=== PATIENT | female | born 1975 | race Two or more races ===

== ENCOUNTER 2019-10-24 18:15 | Emergency (ER) | payer BC ==
[~2019-10-24] VITALS: Ht 154.9 cm; Wt 74.5 kg
[2019-10-24] MEDS ORDERED: SODIUM CHLORIDE FLUSH 10ML SYR IVF ONE (19:00)
[2019-10-24] MEDS ORDERED: ONDANSETRON 2MG/ML, 2ML IVPush ONE (19:00)
[2019-10-24] MEDS ORDERED: MORPHINE SULFATE 4 MG/ML, 1ML IVPush PRN (19:00)
[2019-10-24] MEDS ORDERED: SODIUM CHLORIDE 0.9% 1,000ML IVBOLUS ONE (19:00)
[2019-10-24 19:18] LABS: BASOPHILS # (AUTO) 0.04 x10^3/uL (0-0.1); BASOPHILS % (AUTO) 0 % (0-1); EOSINOPHILS # (AUTO) 0.14 x10^3/uL (0-0.4); EOSINOPHILS % (AUTO) 1 % (1-7); LYMPHOCYTES # (AUTO) 2.32 x10^3/uL (1-3.4); LYMPHOCYTES % (AUTO) 22 % (22-44); MD NO; MEAN CORPUSCULAR HEMOGLOBIN 28.3 pg (27.0-34.8); MEAN CORPUSCULAR HGB CONC 32.5 g/dL (32.4-35.8); MEAN CORPUSCULAR VOLUME 87.3 fL (80-100); MEAN PLATELET VOLUME 9.4 fL (7.4-10.4); MONOCYTES # (AUTO) 0.56 x10^3/uL (0.2-0.8); MONOCYTES % (AUTO) 5 % (2-9); NEUTROPHILS # (AUTO) 7.61 x10^3/uL (1.8-6.8); NEUTROPHILS % (AUTO) 71 % (42-75); PLATELET COUNT 260 x10^3/uL (130-400); RED BLOOD COUNT 4.73 x10^6/uL (3.82-5.3)
[2019-10-24] MEDS ORDERED: ONDANSETRON 2MG/ML, 2ML ONE (19:18)
[2019-10-24] MEDS ORDERED: MORPHINE SULFATE 4 MG/ML, 1ML ONE (19:18)
[2019-10-24 19:25] LABS: ALANINE AMINOTRANSFERASE 21 U/L (12-78); ALBUMIN 3.5 g/dL (3.4-5.0); ANION GAP 6 mmol/L (5-15); CHLORIDE 106 mmol/L (98-107); CREATININE 0.62 mg/dL (0.55-1.02)
--- NOTE | 2019-10-24 19:26 | NUR ---
pt in [place] now
[2019-10-24 19:31] LABS: ALKALINE PHOSPHATASE 123 U/L (45-117); BILIRUBIN,TOTAL 0.5 mg/dL (0.2-1.0); TOTAL PROTEIN 7.2 g/dL (6.4-8.2)
[2019-10-24] MEDS ORDERED: MAALOX/HYOSCYAMINE/LIDOCAINE 45 ML BTL ONE (20:09)
--- NOTE | 2019-10-24 20:12 | NUR ---
LATE NOTE ITERPRETER [id number] USED AT TIME OF ASSESSMENT. AT APPROX 1900. SERVICE USED FOR CLINICAL AND ASSESSMENT
[2019-10-24] MEDS ORDERED: MAALOX/HYOSCYAMINE/LIDOCAINE 45 ML BTL PO ONE (20:30)
--- NOTE | 2019-10-24 20:35 | NUR ---
this tech did ekg
[2019-10-24 20:36] LABS: TROPONIN I < 0.015 ng/mL (0.000-0.045)
--- NOTE | 2019-10-24 21:12 | NUR ---
PREPRESS MANAGER [id number] USED BY THIS RN AND DR URBINA FOR REASSESSMENT. PT AT THIS TIME DOES NOT WISH FOR ANY MORE PAIN MEDS. PT AGREES TO NOTIFY THIS RN IF CONDITIONS CHANGE.
[2019-10-24 22:00] VITALS: BP 105/62
--- NOTE | 2019-10-24 22:33 | NUR ---
Patient given discharge instructions and they have confirmed that they understand the instructions. Patient ambulatory with steady gait.
== END 2019-10-24 22:35 | disposition home or self-care (01) ==
LOC: ED 21:16
DX: K29.00 Acute gastritis without bleeding (principal); R10.11 Right upper quadrant pain; R11.2 Nausea with vomiting, unspecified; R94.31 Abnormal electrocardiogram [ECG] [EKG]; Z87.891 Personal history of nicotine dependence
CPT/HCPCS: 36415; 74176; 76700; 80053; 83690; 84484; 84703; 85025; 93005; 96360; 99285; J7030